=== PATIENT | female | born 1980 | race Asian ===

== ENCOUNTER 2018-10-16 18:38 | Emergency (ER) | payer BC, OTHER ==
[~2018-10-16] VITALS: Ht 160 cm; Wt 53.5 kg
[~2018-10-16 18:38] MED LIST: NKM
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
[2018-10-16 18:56] VITALS: BP 122/76
[2018-10-16] MEDS ORDERED: Methocarbamol 500mg tab ORAL ONE (19:00)
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
[2018-10-16] MEDS ORDERED: LIDODERM700 M1 TOPIC (19:33)
[2018-10-16] MEDS ORDERED: IBUPROFEN600 MG ORAL (19:33)
[2018-10-16] MEDS ORDERED: ROBAXIN-750750 MG PO (19:33)
[2018-10-16 19:42] VITALS: BP 120/73
--- NOTE | 2018-10-16 19:42 | NUR ---
ED Nurse Note: pt cleared to be d/c per ER provider, pt discharge and aftercare instruction provided w/ prescription, pt education done via discussion and handout, pt advised to follow up with pcp or return to ed if changes in condition, vss, ambulatory w/ steady gait, left w/ all belongings, id band removed.
== END 2018-10-16 19:45 | disposition home or self-care (01) ==
LOC: EDBD 18:38 → EMR 18:46
DX: S00.83XA Contusion of other part of head, initial encounter (principal); S16.1XXA Strain of muscle, fascia and tendon at neck level, initial encounter; V43.52XA Car driver injured in collision with other type car in traffic accident, initial encounter; Y92.410 Unspecified street and highway as the place of occurrence of the external cause
CPT/HCPCS: 99282